=== PATIENT | male | born 1950 | race Caucasian/White ===

== ENCOUNTER 2017-08-13 08:44 | Day surgery (SDC) | payer MEDICARE, OTHER ==
[~2017-08-13] VITALS: Ht 167.6 cm; Wt 103.2 kg
[~2017-08-13 08:44] MED LIST: BENTYL10 MG; DULO30; Desyrel50 MG; GABA600; HYDR1TAB94 PO; IBUP800; MEMA10; Niacin1000 MG; OMEPRAZOLE MAGN20 MG; SINUS RINSE ST1 EACH; TAMS.4ER; ZOLP10
== END 2017-08-13 10:45 | disposition home or self-care (01) ==
LOC: ORSCSDS 08:44
PROVIDERS: Internal Medicine Gastroenterology
PROC: 0DB68ZX Excision of Stomach, Via Natural or Artificial Opening Endoscopic, Diagnostic (ICD-10-PCS; principal; 2017-08-13 10:00)
PROC: 0DBN8ZX Excision of Sigmoid Colon, Via Natural or Artificial Opening Endoscopic, Diagnostic (ICD-10-PCS; principal; 2017-08-13 10:00)
PROC: 0DBL8ZX Excision of Transverse Colon, Via Natural or Artificial Opening Endoscopic, Diagnostic (ICD-10-PCS; principal; 2017-08-13 10:00)
PROC: 0DB98ZX Excision of Duodenum, Via Natural or Artificial Opening Endoscopic, Diagnostic (ICD-10-PCS; principal; 2017-08-13 10:00)
PROC: 0DBH8ZX Excision of Cecum, Via Natural or Artificial Opening Endoscopic, Diagnostic (ICD-10-PCS; principal; 2017-08-13 10:00)
DX: K21.9 Gastro-esophageal reflux disease without esophagitis (principal); K22.10 Ulcer of esophagus without bleeding; K57.10 Diverticulosis of small intestine without perforation or abscess without bleeding; D12.0 Benign neoplasm of cecum; K63.5 Polyp of colon; K57.30 Diverticulosis of large intestine without perforation or abscess without bleeding; K64.8 Other hemorrhoids; Z12.11 Encounter for screening for malignant neoplasm of colon; M79.7 Fibromyalgia; E78.5 Hyperlipidemia, unspecified; N40.0 Benign prostatic hyperplasia without lower urinary tract symptoms; Z79.899 Other long term (current) drug therapy
CPT/HCPCS: 88305; 88342; J7120

== ENCOUNTER 2021-03-29 17:03 | Inpatient (IN) | payer MEDICARE ==
[~2021-03-29] VITALS: Ht 167.6 cm; Wt 83.4 kg
[~2021-03-29 17:03] MED LIST changes: -BENTYL10 MG; -DULO30; -OMEPRAZOLE MAGN20 MG; -TAMS.4ER; -ZOLP10
[2021-03-29 17:39] LABS: BASOPHILS ABSOLUTE AUTO 0.06 K/mm3 (0.00-0.23); BASOPHILS PERCENT AUTO 0 % (0-2); EOSINOPHILS PERCENT AUTO 0 % (0-6); Hemoglobin 18.8 g/dL (13.5-17.5); IMMATURE GRAN ABSOLUTE AUTO 0.42 K/mm3 (0.00-0.10); IMMATURE GRAN PERCENT AUTO 2 % (0-1); LYMPHOCYTES ABSOLUTE AUTO 0.88 K/mm3 (0.84-5.20); LYMPHOCYTES PERCENT AUTO 3 % (21-46); MONOCYTES ABSOLUTE AUTO 1.37 K/mm3 (0.16-1.47); MONOCYTES PERCENT AUTO 5 % (4-13); Mean Corpuscular HGB 29.5 pg (26.0-34.0); Mean Corpuscular HGB Conc 34.2 g/dL (31.5-36.5); Mean Corpuscular Volume 86 fL (80-100); Mean Platelet Volume 10.9 fL (9.1-12.4); NEUTROPHILS ABSOLUTE AUTO 25.86 K/mm3 (1.96-9.15); NEUTROPHILS PERCENT AUTO 90 % (41-73); Platelet Count 297 K/mm3 (150-400); RDW Coefficient Variation 13.3 % (11.7-14.2); RDW Standard Deviation 41.7 fL (35.1-46.3); Red Blood Cell Count 6.38 M/mm3 (4.30-5.90); White Blood Cell Count 28.59 K/mm3 (4.00-11.30)
[2021-03-29 18:02] LABS: Alanine Aminotransfer (ALT/SGP 22 U/L (12-78); Albumin/Globulin Ratio 1.1 (0.8-1.8); Alk Phos 64 U/L (50-136); Anion Gap 16 mmol/L (6-16); Aspartate Aminotrans (AST/SGOT 16 U/L (12-37); Bilirubin, Total 0.5 mg/dL (0.1-1.0); Blood Urea Nitrogen 19 mg/dL (8-24); CO2, Blood 19 mmol/L (21-32); Calcium, Blood 10.1 mg/dL (8.5-10.1); Chloride, Blood 104 mmol/L (98-108); Globulin, Blood 3.6 g/dL (2.2-4.0); Glomerular Filtration Rate >60 (60-); Glucose, Blood 200 mg/dL (70-99); Potassium, Blood 3.2 mmol/L (3.5-5.5); Sodium, Blood 139 mmol/L (136-145); Total Protein, Blood 7.6 g/dL (6.4-8.2)
[2021-03-29] MEDS ORDERED: TAMS.4ER PO (19:27)
[2021-03-29] MEDS ORDERED: Norco 10-325 T1 EACH PO (19:28)
[2021-03-29] MEDS ORDERED: Dicyclomine HCl20 MG PO (19:28)
[2021-03-29] MEDS ORDERED: OMEPRAZOLE MAGN20 MG PO (19:29)
[2021-03-29] MEDS ORDERED: ZOLP10 PO (19:29)
[2021-03-29] MEDS ORDERED: DULO30 PO (19:29)
[2021-03-29] MEDS ORDERED: CYMBALTA30 M2 PO (19:30)
[2021-03-30 00:02] LABS: SARS-Cov-2 (COVID-19) PCR, MMC NEGATIVE (NEGATIVE)
[2021-03-30 00:32] LABS: BASOPHILS ABSOLUTE AUTO 0.04 K/mm3 (0.00-0.23); BASOPHILS PERCENT AUTO 0 % (0-2); EOSINOPHILS ABSOLUTE AUTO 0.01 K/mm3 (0.00-0.68); EOSINOPHILS PERCENT AUTO 0 % (0-6); Hematocrit 53.6 % (37.0-53.0); Hemoglobin 17.1 g/dL (13.5-17.5); IMMATURE GRAN ABSOLUTE AUTO 0.23 K/mm3 (0.00-0.10); IMMATURE GRAN PERCENT AUTO 1 % (0-1); LYMPHOCYTES ABSOLUTE AUTO 1.24 K/mm3 (0.84-5.20); LYMPHOCYTES PERCENT AUTO 5 % (21-46); MONOCYTES PERCENT AUTO 6 % (4-13); Mean Corpuscular HGB 29.3 pg (26.0-34.0); Mean Corpuscular HGB Conc 31.9 g/dL (31.5-36.5); Mean Corpuscular Volume 92 fL (80-100); NEUTROPHILS PERCENT AUTO 88 % (41-73); Platelet Count 248 K/mm3 (150-400); RDW Coefficient Variation 13.8 % (11.7-14.2); RDW Standard Deviation 46.6 fL (35.1-46.3); Red Blood Cell Count 5.84 M/mm3 (4.30-5.90); White Blood Cell Count 23.32 K/mm3 (4.00-11.30)
[2021-03-30 00:51] LABS: Anion Gap 15 mmol/L (6-16); Blood Urea Nitrogen 17 mg/dL (8-24); Bun/Creatinine Ratio 19.2 (12.0-20.0); CO2, Blood 13 mmol/L (21-32); Chloride, Blood 117 mmol/L (98-108); Creatinine, Blood 0.89 mg/dL (0.60-1.20); Glomerular Filtration Rate >60 (60-); Glucose, Blood 159 mg/dL (70-99); Potassium, Blood 3.9 mmol/L (3.5-5.5); Sodium, Blood 145 mmol/L (136-145)
[2021-03-30 00:57] LABS: Calcium, Blood 6.8 mg/dL (8.5-10.1)
[2021-03-30 01:27] LABS: Source, Urine Catheter
[2021-03-30 01:30] LABS: Bilirubin, Urine Neg (Neg); Blood, Urine 2+ (Neg); Glucose Qualitative, Urine 1+ (Neg); Ketones, Urine 3+ (Neg); Leukocyte Esterase, Urine Neg (Neg); Nitrite, Urine Neg (Neg); Protein, Urine 2+ (Neg); Specific Gravity, Urine 1.015 (1.003-1.022); Urobilinogen, Urine NORM (Normal)
[2021-03-30 01:36] LABS: Appearance, Urine Clear (Clear); Color, Urine Yellow (P-Yellow)
[2021-03-30 01:37] LABS: Bacteria Few /hpf; Red Blood Cells, Urine 0-2 /hpf (0-2); Squamous Epithelial Cells Not Seen /hpf (Few); WBC Cast 0-2 /lpf (0)
[2021-03-30 01:51] LABS: PCO2 Arterial 30.1 mmHg (35-45); PO2 Arterial 137 mmHg (80-100); pH Blood Arterial 7.32 (7.35-7.45)
--- NOTE | 2021-03-30 02:01 | NUR ---
DR SIMMONS AT BEDSIDE. POC TO TAKE TO OR.
--- NOTE | 2021-03-30 02:37 | NUR ---
RAPID RESPONSE/CODE BLUE RAPID RESPONSE/CODE BLUE IMMEDIATELY UPON ADMISSION. PT ER ADMIT. PT ARRIVED TO THE UNIT 2350, PT WALKED FROM [facility] TO THE BED. PT WAS A/OX4, I INTRODUCED MYSELF TO PT, AND HE ACKNOWLEDGED ME AND SETTLED INTO THE BED. HE APPEARED WITHOUT ANY DISTRESS AND DID NOT HAVE ANY COMPLAINTS. AT 2353 [facility], BIOINFORMATICS ASSISTANT WAS IN THE ROOM ASSISTING PT. PT REPORTED THAT HE NEEDED TO USE THE BATHROOM HE WALKED TO THE BATHROOM WITH SBA AND WHEN HE RETURNED BIOINFORMATICS ASSISTANT REPORTED THAT HE JUST PASSED OUT. BIOINFORMATICS ASSISTANT CAUGHT PAITENT AND SLID HIM DOWN TO THE SIDE OF THE BED. HELPER RN MYRNA CRUMP WAS ALSO AT THE BEDSIDE WHEN THIS OCCURED. THIS RN AND ORIENT MARTITA PORTER, WERE NOT IN THE ROOM AT THE TIME. THEY IMMEDIATELY CALLED FOR ASSISTANCE AND I IMMEDIATELY CAME IN THE ROOM TO FIND PT LAYING AT THE END OF THE BED WITH HIS FEET HANGING OFF THE BED TOUCHING THE FLOOR. PT WAS PALE AND WAS MOSTLY NON RESPONSIVE. PT WAS SLIGHTLY MOVING HIS ARMS, AND HIS EYES BUT DID NOT VERBALLY RESPOND. RAPID RESPONSE WAS CALLED AT 2358. MOBILE EQUIPMENT MECHANIC CAME INTO ROOM TO IMMEDIATELY ASSESS PT, WHEN MOBILE EQUIPMENT MECHANIC ARRIVED PT HAD STOPPED BREATHING AND CODE WAS CALLED AT 0000. PT DID NOT LOSE PULSE, BUT WAS NOT BREATHING. RT BEGAN BAGGING PT AT THAT TIME, PT WAS IN AND OUT OF CONCIOUSNESS, KICKING AND MOVING HIS EXTREMITIES. DR. PEÑA ARRIVED AT BEDSIDE TO ASSESS PT AND DETERMINED THAT PT NEEDED TO BE INTUBATED. DR. PEÑA INTUBATED PT. VITALS CYCLED ON MACHINE. CURTIS ROSAS RN WAS ACTING RECORDER OF EVENTS. LABS WERE OBTAINED. PT IMMEDIATELY TRANSFERRED TO ICU RM 2 AT [address].
--- NOTE | 2021-03-30 02:59 | NUR ---
PT TO OR
--- NOTE | 2021-03-30 03:38 | NUR ---
03/30/21 0338 Chacho Boogie PT ENTERED OR WITH ROSAS CATHETER AND ON SCHEDULED ANTIBIOTICS
[2021-03-30 05:15] LABS: BASOPHILS ABSOLUTE AUTO 0.05 K/mm3 (0.00-0.23); BASOPHILS PERCENT AUTO 0 % (0-2); EOSINOPHILS PERCENT AUTO 0 % (0-6); Hematocrit 47.4 % (37.0-53.0); Hemoglobin 16.4 g/dL (13.5-17.5); IMMATURE GRAN ABSOLUTE AUTO 0.21 K/mm3 (0.00-0.10); IMMATURE GRAN PERCENT AUTO 1 % (0-1); LYMPHOCYTES ABSOLUTE AUTO 1.02 K/mm3 (0.84-5.20); LYMPHOCYTES PERCENT AUTO 5 % (21-46); MONOCYTES ABSOLUTE AUTO 0.87 K/mm3 (0.16-1.47); MONOCYTES PERCENT AUTO 4 % (4-13); Mean Corpuscular HGB 29.7 pg (26.0-34.0); Mean Corpuscular HGB Conc 34.6 g/dL (31.5-36.5); Mean Platelet Volume 11.5 fL (9.1-12.4); NEUTROPHILS ABSOLUTE AUTO 20.43 K/mm3 (1.96-9.15); NEUTROPHILS PERCENT AUTO 91 % (41-73); Platelet Count 249 K/mm3 (150-400); RDW Coefficient Variation 13.7 % (11.7-14.2); RDW Standard Deviation 43.4 fL (35.1-46.3); Red Blood Cell Count 5.52 M/mm3 (4.30-5.90); White Blood Cell Count 22.58 K/mm3 (4.00-11.30)
--- NOTE | 2021-03-30 05:17 | NUR ---
PT RETURNS FROM OR AT 0448. HE REMAINS INTUBATED AND ON SAME VENT SETTINGS. APPROX 20 IN OF BOWEL WERE REMOVED PER DR SIMMONS, WHO IS GOING TO CALL TO UPDATE THE DAUGHTER. PROPOFOL IS RESTARTED FOR SEDATION. DEMLY DRESSING IN PLACE ON ABD.
[2021-03-30 05:41] LABS: Mean Corpuscular Volume 86 fL (80-100)
[2021-03-30 05:42] LABS: Anion Gap 8 mmol/L (6-16); Blood Urea Nitrogen 17 mg/dL (8-24); Bun/Creatinine Ratio 19.3 (12.0-20.0); CO2, Blood 21 mmol/L (21-32); Calcium, Blood 7.5 mg/dL (8.5-10.1); Chloride, Blood 111 mmol/L (98-108); Creatinine, Blood 0.88 mg/dL (0.60-1.20); Glomerular Filtration Rate >60 (60-); Glucose, Blood 133 mg/dL (70-99); Sodium, Blood 140 mmol/L (136-145)
--- NOTE | 2021-03-30 06:45 | NUR ---
SHIFT SUMMARY PT REMAINS STABLE OFF PRESSORS SINCE RETURNING TO ICU.VENT SETTINGS UNCHANGED EXCEPT FIO2 DECREASED TO 40%. DELMY DRESSING CDI. PT HAD 2-3 FEET OF SMALL BOWELL REMOVED PER DR SIMMONS. HE IS COMFORTABLY SEDATED ON PROPOFOL AT 30MCG/KG/MIN. WILL CONTINUE TO MONITOR AND REPORT TO ONCOMING SHIFT.
--- NOTE | 2021-03-30 08:00 | NUR ---
ASSUMED CARE PT SEDATED AND INTUBATED AT THIS TIME. RESPONDS TO VERBAL STIMULI. PT. HAS NG TUBE IN PLACE TO LIS, CLEAR GREEN FLUID NOTED IN OG TUBE. PT. HAS MIDLINE DELMY DRESSING IN PLACE WITH SMALL AMT OF DRAINAGE TO DRESSING APPROX SIZE OF A QUARTER. PT. ABD SOFT, BT ABSENT AT THIS TIME. ROSAS IN PLACE DRAINING TO GRAVITY. VSS AT THIS TIME. HR IN LOW 100S. PT. CURRENTLY ON PROPOFOL FOR SEDATION. NADN. BILAT WRIST RESTRAINTS IN PLACE FOR SAFETY.
[2021-03-30 08:26] LABS: Anion Gap 7 mmol/L (6-16); Blood Urea Nitrogen 17 mg/dL (8-24); Bun/Creatinine Ratio 17.2 (12.0-20.0); CO2, Blood 22 mmol/L (21-32); Calcium, Blood 7.9 mg/dL (8.5-10.1); Chloride, Blood 110 mmol/L (98-108); Creatinine, Blood 0.99 mg/dL (0.60-1.20); Glomerular Filtration Rate >60 (60-); Glucose, Blood 127 mg/dL (70-99); Potassium, Blood 4.8 mmol/L (3.5-5.5); Sodium, Blood 139 mmol/L (136-145)
--- NOTE | 2021-03-30 09:23 | NUR ---
PROP PLACED ON SB FOR WEAN SPONT PS 8, 30%. VSS AT THIS TIME.
--- NOTE | 2021-03-30 09:30 | NUR ---
EXTUBATION PT. EXTUBATED AT THIS TIME. BILAT WRIST RESTRAINTS REMOVED AT TIME OF EXTUBATION. PT. IMMEDIATELY BEGAN PULLING AT BEDRAIL STATING "I HAVE TO GET UP AND GO TO THE BATHROOM", PT REORIENTED AND REMINDED OF ROSAS CATHETER. PT. PULLING AT LINES/ CORDS AND THROWING LEGS OVER THE EDGE OF THE BED ATTEMPTING TO GET OOB. PT. REMINDED FREQUENTLY OF SAFETY AND IMPORTANCE OF STAYING IN BED. PT REORIENTED TO ABD SURGERY. PT. INSISTANT OF GETTING OUT OF BED, STATING "I CAN NOT PEE LIKE THIS GET ME UP NOW". TIRE VULCANIZER IN TO ASSIST THIS RN TO HELP GET PT LEGS BACK INTO BED. PT. REQUESTING ROSAS BE REMOVED, PULLING AT ROSAS. REPORTS HE CAN NOT VOID. URINE IN TUBING. ROSAS DCD AT THIS TIME. PT. BLADDER SCANNED DUE TO CONTINUED FEELING OF NEEDING TO VOID WITH INABILITY TO DO SO. NO RESIDUAL URINE IN BLADDER PER BLADDER SCAN. PT. PULLING AT BED RAIL INSISTING ON GETTING OOB. PHYSICAL THERAPIST IN TO ROOM TO ASSIST TO DANGLE PT. PT. SAFELY ASSISTED TO BEDSIDE TO DANGLE AND STAND BRIEFLY TO VOID. ABLE TO VOID A SMALL AMOUNT INTO URINAL. PT. HR INCREASED TO 150S WHILE STANDING AND PT BECAME DIAPHORETIC. ASSISTED PT BACK TO BED AT THIS TIME. NG TUBE REMAINS IN PLACE WITH 2LNC. PT HR DOWN TO 120S ONCE BACK IN BED. PT. CONTINUES TO ASK TO GET OOB TO PEE AND NEEDS FREQUENT REDIRECTION. BED ALARM ON FOR SAFETY AND BED IN LOW POSITION. CALL LIGHT IN REACH.
--- NOTE | 2021-03-30 10:56 | NUR ---
PT UPDATED PT. REMAINS SITTING UP IN BED WITH URINAL. CALL LIGHT IN REACH. PT ASSSISTED TO USE HIS CELL PHONE TO CALL . ORAL CARE PROVIDED.
--- NOTE | 2021-03-30 12:24 | NUR ---
REPORT TO SURGICAL FLOOR RN. PT TO BE TRANSFERRED TO ROOM 209. PT FAMILY UPDATED.
--- NOTE | 2021-03-30 12:48 | NUR ---
PT TRANSFERRED TO SURGICAL FLOOR. VSS UPON TRANSFER.
--- NOTE | 2021-03-30 18:34 | NUR ---
SHIFT SUMMARY PT TRANSFERRED FROM ICU AFTER BEING EXTUBATED. PT HAS A SBO AND HAS NG TO LOW SUCTION. ANXIETY PRESENT AFTER BEING EXTUBATED THAT HAS SUBSIDED SLIGHTLY. PT HAS CHRONIC FIBROMYALGIA PAIN AND A HX OF PROSTATE CANCER. PT HAS FREQUENCY AND URGENCY. PT TACHYCARDIC AND HR INCREASES AND PT BECOMES DIAPHORETIC WITH AMBULATION. POD #1 FOR EX LAP. MIDLINE DELMY DRESSING PLACE. SMALL AMOUNT OF DRAINAGE NOTED. CURRENTLY RESTING IN BED WITH HIS CALL LIGHT IN REACH. WILL REPORT TO ONCOMING RN.
--- NOTE | 2021-03-30 21:15 | NUR ---
ON ASSESSMENT NOTED PTS R HAND SWOLLEN AND DUSKY.PALM IS DARKER THAN TOPSIDE AND REFILL DELAYED.PT REPORTS MILD PAIN AT R WRIST, AND DECREASED SENSATION TO R HAND COMPARED TO L. RADIAL PULSE PRESENT.PT ABLE TO WIGGLE FINGERS AND ODETTE FIST.WRIST BAND REMOVED, BUT IT WAS NOT TIGHT.IV R LEAKING DCD WITH CATH INTACT. HEART RATE REMAINS 120'S.DELMY DRESSING SATURATED WITH RED DRNG.I CALLED DR ALMONTE AND DISCUSSED MY ASSESSMENT. TO ROOM AND CHECKED PTS HAND.NOTED FEW SCABS TO TOP OF R HAND WHICH COULD BE PRIOR IV ATTEMPTS OR SITES.NO CHANGE OF ORDERS.
--- NOTE | 2021-03-31 00:55 | NUR ---
ABD DRESSING WITH ONLY SCANT BLEED AT THIS TIME. PT VOIDING JONATHAN URINE. PRESSURE DRESSING REMOVED TO R FA AT IV DC HAS LIGHT OOZING.HEART RATE CONTINUES 120'S.I SPOKE WITH DR SIMMONS AND ADVISED OF ABOVE INCLUDING DISCUSSED HAND. LABS AND IV BOLUS ORDERED.
[2021-03-31 02:05] LABS: BASOPHILS ABSOLUTE AUTO 0.03 K/mm3 (0.00-0.23); BASOPHILS PERCENT AUTO 0 % (0-2); EOSINOPHILS PERCENT AUTO 0 % (0-6); Hematocrit 36.4 % (37.0-53.0); Hemoglobin 12.5 g/dL (13.5-17.5); IMMATURE GRAN ABSOLUTE AUTO 0.05 K/mm3 (0.00-0.10); IMMATURE GRAN PERCENT AUTO 0 % (0-1); LYMPHOCYTES ABSOLUTE AUTO 0.88 K/mm3 (0.84-5.20); LYMPHOCYTES PERCENT AUTO 6 % (21-46); MONOCYTES ABSOLUTE AUTO 1.37 K/mm3 (0.16-1.47); MONOCYTES PERCENT AUTO 9 % (4-13); Mean Corpuscular HGB 29.6 pg (26.0-34.0); Mean Corpuscular HGB Conc 34.3 g/dL (31.5-36.5); Mean Corpuscular Volume 86 fL (80-100); NEUTROPHILS ABSOLUTE AUTO 13.64 K/mm3 (1.96-9.15); NEUTROPHILS PERCENT AUTO 85 % (41-73); Platelet Count 169 K/mm3 (150-400); RDW Coefficient Variation 14.1 % (11.7-14.2); RDW Standard Deviation 44.8 fL (35.1-46.3); Red Blood Cell Count 4.22 M/mm3 (4.30-5.90); White Blood Cell Count 15.97 K/mm3 (4.00-11.30)
[2021-03-31 02:34] LABS: Alanine Aminotransfer (ALT/SGP 29 U/L (12-78); Albumin, Blood 2.1 g/dL (3.4-5.0); Albumin/Globulin Ratio 0.9 (0.8-1.8); Alk Phos 36 U/L (50-136); Anion Gap 5 mmol/L (6-16); Aspartate Aminotrans (AST/SGOT 43 U/L (12-37); Bilirubin, Total 0.4 mg/dL (0.1-1.0); Blood Urea Nitrogen 21 mg/dL (8-24); Bun/Creatinine Ratio 22.5 (12.0-20.0); CO2, Blood 27 mmol/L (21-32); Chloride, Blood 113 mmol/L (98-108); Creatinine, Blood 0.93 mg/dL (0.60-1.20); Globulin, Blood 2.3 g/dL (2.2-4.0); Glomerular Filtration Rate >60 (60-); Glucose, Blood 91 mg/dL (70-99); Potassium, Blood 3.9 mmol/L (3.5-5.5); Sodium, Blood 145 mmol/L (136-145)
[2021-03-31 02:36] LABS: Total Protein, Blood 4.4 g/dL (6.4-8.2)
--- NOTE | 2021-03-31 04:30 | NUR ---
PT RECEIVED BOLUS PER ORDERS AND HEART RATE IS TRENDING UP.138 AVERAGE.CONTINUES SINUS RHYTHMN.I CALLED DR JUAN AND ADVISED OF ABOVE.DOCTOR ORDERED IV LOPRESSOR X1 DOSE.
--- NOTE | 2021-03-31 05:15 | NUR ---
HEART RATE IS TRENDING DOWN TO 105.
--- NOTE | 2021-03-31 05:30 | NUR ---
PT CONT WITH MILD OOZING AT PRIOR IV SITE R FA WHEN DRESSING AND COBAN REMOVED.ABD DRESSING WITH APPROX 50 CENT SIZED AREA OF RED DRNG TO DELMY.PT RECENT VOID WATERMELON COLORED AND SLIGHT BLEEDING TO MEATUS.I CALLED DR JUAN FOR MY CONCERNS OF PT NOT HAVING BEEN ON THINNERS AND OOZING SITES AND BLEEDING WITH VOID.PT/INR ORDERED.
--- NOTE | 2021-03-31 06:56 | NUR ---
SUMMARY PT RESTING ON L SIDE.IV FLUIDS INFUSING. NO DISTRESS NOTED.PRIOR OOZING IV SITE WITH ONLY DRIED BLOOD AT THIS TIME.PT VOIDED YELLOW URINE HIS MOST RECENT VOID. LABS WERE DRAWN AND PENDING.
[2021-03-31 06:57] LABS: BASOPHILS ABSOLUTE AUTO 0.02 K/mm3 (0.00-0.23); BASOPHILS PERCENT AUTO 0 % (0-2); EOSINOPHILS PERCENT AUTO 0 % (0-6); Hemoglobin 12.4 g/dL (13.5-17.5); IMMATURE GRAN ABSOLUTE AUTO 0.06 K/mm3 (0.00-0.10); IMMATURE GRAN PERCENT AUTO 0 % (0-1); LYMPHOCYTES ABSOLUTE AUTO 0.96 K/mm3 (0.84-5.20); LYMPHOCYTES PERCENT AUTO 6 % (21-46); MONOCYTES ABSOLUTE AUTO 1.35 K/mm3 (0.16-1.47); MONOCYTES PERCENT AUTO 8 % (4-13); Mean Corpuscular HGB 29.4 pg (26.0-34.0); Mean Corpuscular HGB Conc 33.5 g/dL (31.5-36.5); Mean Corpuscular Volume 88 fL (80-100); Mean Platelet Volume 11.2 fL (9.1-12.4); NEUTROPHILS ABSOLUTE AUTO 13.79 K/mm3 (1.96-9.15); NEUTROPHILS PERCENT AUTO 85 % (41-73); Platelet Count 166 K/mm3 (150-400); RDW Coefficient Variation 14.2 % (11.7-14.2); RDW Standard Deviation 45.5 fL (35.1-46.3); Red Blood Cell Count 4.22 M/mm3 (4.30-5.90); White Blood Cell Count 16.18 K/mm3 (4.00-11.30)
[2021-03-31 07:15] LABS: International Normalized Ratio 1.15; Prothrombin Time Results 12.3 Sec (9.7-11.5)
[2021-03-31 07:17] LABS: Albumin, Blood 2.2 g/dL (3.4-5.0); Anion Gap 6 mmol/L (6-16); Blood Urea Nitrogen 19 mg/dL (8-24); Bun/Creatinine Ratio 20.6 (12.0-20.0); CO2, Blood 28 mmol/L (21-32); Chloride, Blood 111 mmol/L (98-108); Creatinine, Blood 0.92 mg/dL (0.60-1.20); Glomerular Filtration Rate >60 (60-); Glucose, Blood 91 mg/dL (70-99); Phosphorus, Blood 2.3 mg/dL (2.5-4.9); Potassium, Blood 3.8 mmol/L (3.5-5.5); Sodium, Blood 145 mmol/L (136-145)
--- NOTE | 2021-03-31 16:49 | NUR ---
awating [facility] for [address] ATTEMPTS BY TWO PHLEBOTOMISTS UNSUCCESSFUL. RN UNABLE TO DRAW FROM dynaTrace software. CALL OUT TO DR CHOWDHURY.
--- NOTE | 2021-03-31 18:05 | NUR ---
SUMMARY NO ACUTE CHANGES T/O SHIFT. PT PAINFUL, MEDICATED PER ORDERS FOR PAIN. NG PUTTING OUT GREEN LIQUID. PT DENIES PASSING FLATUS. ABLE TO TURN SELF INDEPENDENTLY IN BED. IV FLUIDS INFUSING PER ORDERS. CALL LIGHT IN REACH.
--- NOTE | 2021-03-31 19:05 | NUR ---
report given to oncoming shift.
[2021-04-01 05:09] LABS: BASOPHILS ABSOLUTE AUTO 0.03 K/mm3 (0.00-0.23); BASOPHILS PERCENT AUTO 0 % (0-2); EOSINOPHILS ABSOLUTE AUTO 0.02 K/mm3 (0.00-0.68); EOSINOPHILS PERCENT AUTO 0 % (0-6); Hematocrit 31.2 % (37.0-53.0); Hemoglobin 10.4 g/dL (13.5-17.5); IMMATURE GRAN ABSOLUTE AUTO 0.07 K/mm3 (0.00-0.10); IMMATURE GRAN PERCENT AUTO 1 % (0-1); LYMPHOCYTES ABSOLUTE AUTO 0.76 K/mm3 (0.84-5.20); LYMPHOCYTES PERCENT AUTO 7 % (21-46); MONOCYTES ABSOLUTE AUTO 0.65 K/mm3 (0.16-1.47); MONOCYTES PERCENT AUTO 6 % (4-13); Mean Corpuscular HGB 29.6 pg (26.0-34.0); Mean Corpuscular HGB Conc 33.3 g/dL (31.5-36.5); Mean Corpuscular Volume 89 fL (80-100); NEUTROPHILS ABSOLUTE AUTO 10.19 K/mm3 (1.96-9.15); NEUTROPHILS PERCENT AUTO 87 % (41-73); Platelet Count 122 K/mm3 (150-400); RDW Coefficient Variation 14.1 % (11.7-14.2); RDW Standard Deviation 45.6 fL (35.1-46.3); Red Blood Cell Count 3.51 M/mm3 (4.30-5.90); White Blood Cell Count 11.72 K/mm3 (4.00-11.30)
[2021-04-01 05:26] LABS: Anion Gap 7 mmol/L (6-16); Blood Urea Nitrogen 15 mg/dL (8-24); Bun/Creatinine Ratio 19.3 (12.0-20.0); CO2, Blood 27 mmol/L (21-32); Chloride, Blood 108 mmol/L (98-108); Creatinine, Blood 0.78 mg/dL (0.60-1.20); Glomerular Filtration Rate >60 (60-); Glucose, Blood 66 mg/dL (70-99); Potassium, Blood 3.4 mmol/L (3.5-5.5); Sodium, Blood 142 mmol/L (136-145)
--- NOTE | 2021-04-01 06:46 | NUR ---
SHIFT SUMMARY POD2 SMALL BOWEL RESECTION, A/O X4, VSS, TOLERATING SIPS, NG IN PLACE TO LIS c 500 OUT, PAIN MANAGED PER EMAR, BT CONTINUE TO BE HYPOACTIVE, PG TO LUE AND ABLE TO DRAW. NO ACUTE EVENTS THIS SHIFT. CALL LIGHT IN REACH, WILL CTM AND REPORT TO DAY RN.
--- NOTE | 2021-04-01 18:45 | NUR ---
SHIFT SUMMARY PT POD #2 FOR SMALL BOWEL RESECTION. NG TUBE DC'D TODAY WNL AND PT TOLERATED REMOVAL WELL. TOLERATING CLEAR LIQUIDS. MEDICATED FOR PAIN DUE TO CHRONIC FIBROMYALGIA PAIN. DELMY DRESSING AT MIDLINE SOILED BUT PT REFUSED DRESSING CHANGE. PT VOIDING SMALL AMOUNTS IN THE URINAL DUE TO BPH. REFUSES TO BE CATHETERIZED. DISCUSSED THIS WITH THE PHYSICIAN. PT HAD A LARGE BM THIS SHIFT. VSS. WILL REPORT TO ONCOMING RN.
--- NOTE | 2021-04-02 06:55 | NUR ---
A/OX3. ABLE TO MAKE HIS NEEDS KNOWN. S/P BOWEL RESECTION. HAD 2 BOUTS OF DIARRHEA. INCONTINENT OF STOOL. FULL BED LINEN AND GOWN CHANGE DONE. ABD TENDER. BT POS X4, HYPOACTIVE. NO N/V. NGT WAS D/C'D YEST. TOLERATING CLD WELL. ABD MIDLINE DELMY DRSG IN PLACE. MOD AMT OF OLD BLOODY DRNG NOTED TO DELMY DRSG. PT REFUSED TO HAVE DELMY DRSG CHANGED. NEW POWEGLIDE IV STARTED DURING NOC. IVF: LR AT 75ML/HR AND IV ABX. RT HAND EDEMATOUS AND MARCUS, PER REPORT MD AWARE.
--- NOTE | 2021-04-02 12:00 | NUR ---
Rounded with Dr. Lyon, changed to full liquid diet, will plan to transition to PO pain medications.
--- NOTE | 2021-04-02 18:16 | NUR ---
shift summary Alex is alert and oriented. Frequent trips to bathroom for small amounts of liquid BM. Voids small amounts with stools. Small amout of blood from meatus this afternoon. Pt reports he had a maldonado during this hospital admission. Will continue to monitor. Tolerating a full liquid diet. Changed to PO pain medications. DELMY dressing to midline draining without difficulty. VSS. Will continue to monitor and report to incoming night time babysitter RN.
--- NOTE | 2021-04-03 04:34 | NUR ---
A/OX3. ABLE TO MAKE HIS NEEDS KNOWN. NO ACUTE CHANGES/EVENTS DURING THE NIGHT. DENIED ANY N/V. HAVING LOOSE STOOLS. ABD SOFT. BT'S POS. TOLERATING FLD & PO NORCO. MIDLINE DELMY DRSG INTACT W/OLD BLOODY DRNG. LUE POWERGLIDE FOR IVF/IV ABX. RT HAND EDEMATOUS.
[2021-04-03 09:03] LABS: BASOPHILS ABSOLUTE AUTO 0.03 K/mm3 (0.00-0.23); BASOPHILS PERCENT AUTO 0 % (0-2); EOSINOPHILS ABSOLUTE AUTO 0.12 K/mm3 (0.00-0.68); EOSINOPHILS PERCENT AUTO 2 % (0-6); Hematocrit 34.7 % (37.0-53.0); Hemoglobin 11.7 g/dL (13.5-17.5); IMMATURE GRAN ABSOLUTE AUTO 0.07 K/mm3 (0.00-0.10); IMMATURE GRAN PERCENT AUTO 1 % (0-1); LYMPHOCYTES ABSOLUTE AUTO 0.46 K/mm3 (0.84-5.20); LYMPHOCYTES PERCENT AUTO 6 % (21-46); MONOCYTES ABSOLUTE AUTO 0.66 K/mm3 (0.16-1.47); MONOCYTES PERCENT AUTO 8 % (4-13); Mean Corpuscular HGB 28.9 pg (26.0-34.0); Mean Corpuscular HGB Conc 33.7 g/dL (31.5-36.5); Mean Corpuscular Volume 86 fL (80-100); Mean Platelet Volume 10.6 fL (9.1-12.4); NEUTROPHILS ABSOLUTE AUTO 6.79 K/mm3 (1.96-9.15); NEUTROPHILS PERCENT AUTO 83 % (41-73); Platelet Count 183 K/mm3 (150-400); RDW Coefficient Variation 13.6 % (11.7-14.2); RDW Standard Deviation 42.9 fL (35.1-46.3); Red Blood Cell Count 4.05 M/mm3 (4.30-5.90); White Blood Cell Count 8.13 K/mm3 (4.00-11.30)
[2021-04-03 09:15] LABS: Albumin, Blood 2.7 g/dL (3.4-5.0); Anion Gap 8 mmol/L (6-16); Blood Urea Nitrogen 7 mg/dL (8-24); CO2, Blood 27 mmol/L (21-32); Calcium, Blood 9.1 mg/dL (8.5-10.1); Chloride, Blood 108 mmol/L (98-108); Creatinine, Blood 0.77 mg/dL (0.60-1.20); Glomerular Filtration Rate >60 (60-); Glucose, Blood 114 mg/dL (70-99); Phosphorus, Blood 3.1 mg/dL (2.5-4.9); Potassium, Blood 2.9 mmol/L (3.5-5.5); Sodium, Blood 143 mmol/L (136-145)
--- NOTE | 2021-04-03 17:46 | NUR ---
SHIFT SUMMARY PT A&OX4, VSS, POD 4 EXP LAP, MIDLINE DELMY REMOVED TODAY, MICH W/MEDIPORE DRESSING CDI. PAIN MANAGED WITH 5 MG NORCO. TREMAINE PO REG DIET. VOIDING WELL. MULTIPLE SOFT/BROWN BM'S. AMBULATES INDEPENDENTLY TO P, AND IN HALLWAY. SANG POWERGLIDE FLUSHES AND DRAWS WELL. WILL REPORT TO ONCOMING NOC RN.
--- NOTE | 2021-04-04 06:42 | NUR ---
A/O X3. ABLE TO MAKE HIS NEEDS KNOWN. POD #3 EXP LAP W/BOWEL SECTION. MIDLINE INCISION COVERED WITH MEDIPORE DRSG. DRSG CDI. NO N/V. HAVING SMALL/FREQ SOFTLY FORMED BM'S. VOIDS W/O DIFF. LUE FLUSHES AND INFUSES WELL BUT NO BLOOD RETURN. TOLERATING REG DIET WELL. RT HAND EDEMA IMPROVING. PAIN WELL MANAGED WITH PRN NORCO. AMB HALLS X1 DURING NOC.
[2021-04-04 06:48] LABS: Albumin, Blood 2.4 g/dL (3.4-5.0); Anion Gap 6 mmol/L (6-16); Blood Urea Nitrogen 5 mg/dL (8-24); Bun/Creatinine Ratio 6.5 (12.0-20.0); CO2, Blood 25 mmol/L (21-32); Calcium, Blood 8.1 mg/dL (8.5-10.1); Chloride, Blood 112 mmol/L (98-108); Creatinine, Blood 0.77 mg/dL (0.60-1.20); Glomerular Filtration Rate >60 (60-); Glucose, Blood 96 mg/dL (70-99); Magnesium, Blood 1.7 mg/dL (1.6-2.4); Phosphorus, Blood 3.4 mg/dL (2.5-4.9); Potassium, Blood 3.5 mmol/L (3.5-5.5); Sodium, Blood 143 mmol/L (136-145)
[2021-04-04 08:02] LABS: BASOPHILS ABSOLUTE AUTO 0.03 K/mm3 (0.00-0.23); BASOPHILS PERCENT AUTO 0 % (0-2); EOSINOPHILS ABSOLUTE AUTO 0.18 K/mm3 (0.00-0.68); EOSINOPHILS PERCENT AUTO 3 % (0-6); Hemoglobin 11.5 g/dL (13.5-17.5); IMMATURE GRAN ABSOLUTE AUTO 0.09 K/mm3 (0.00-0.10); IMMATURE GRAN PERCENT AUTO 1 % (0-1); LYMPHOCYTES PERCENT AUTO 6 % (21-46); MONOCYTES ABSOLUTE AUTO 0.79 K/mm3 (0.16-1.47); MONOCYTES PERCENT AUTO 12 % (4-13); Mean Corpuscular HGB 28.9 pg (26.0-34.0); Mean Corpuscular HGB Conc 33.8 g/dL (31.5-36.5); Mean Corpuscular Volume 85 fL (80-100); Mean Platelet Volume 10.6 fL (9.1-12.4); NEUTROPHILS PERCENT AUTO 78 % (41-73); Platelet Count 186 K/mm3 (150-400); RDW Standard Deviation 43.4 fL (35.1-46.3); Red Blood Cell Count 3.98 M/mm3 (4.30-5.90); White Blood Cell Count 6.79 K/mm3 (4.00-11.30)
[2021-04-04] MEDS ORDERED: LOPE2C PO (14:52)
--- NOTE | 2021-04-04 16:15 | NUR ---
MEDICATION CLARIFICATION PER DR. SIMMONS, PT IS TO CONTINUE DULOXETINE A HOME MED PREVIOUSLY ORDERED. WILL INFORM PT.
--- NOTE | 2021-04-04 17:55 | NUR ---
DISCHARGE PT DISCHARGED AT APPROX. 1740. DISCHARGE PACKET DISCUSSED WITH AND SENT WITH PT. ALL PT'S BELONGINGS SENT WITH WITH PT. IV REMOVED. PT A&O X4 AND VERY PLEASANT.
== END 2021-04-04 17:55 | disposition home or self-care (01) | DRG 853 ==
LOC: ER 17:03 → ICUE 22:13 → MEDS 22:13 → ICUE 03-30 00:24 → SURS 03-30 13:07
PROVIDERS: Internal Medicine; Student in an Organized Health Care Education/Training Program; ADMIT Surgery
PROC: 5A12012 Performance of Cardiac Output, Single, Manual (ICD-10-PCS; principal; 2021-03-29)
PROC: 0DNU0ZZ Release Omentum, Open Approach (ICD-10-PCS; 2021-03-30)
PROC: 5A1955Z Respiratory Ventilation, Greater than 96 Consecutive Hours (ICD-10-PCS; 2021-03-30)
PROC: 3E033XZ Introduction of Vasopressor into Peripheral Vein, Percutaneous Approach (ICD-10-PCS; 2021-03-30)
PROC: 0DB80ZZ Excision of Small Intestine, Open Approach (ICD-10-PCS; 2021-03-30 02:30)
DX: A41.9 Sepsis, unspecified organism (principal); R65.21 Severe sepsis with septic shock; J96.01 Acute respiratory failure with hypoxia; J69.0 Pneumonitis due to inhalation of food and vomit; K55.1 Chronic vascular disorders of intestine; E87.2 Acidosis; K56.52 Intestinal adhesions [bands] with complete obstruction; Z20.822 Contact with and (suspected) exposure to COVID-19; E87.6 Hypokalemia; E83.42 Hypomagnesemia; K21.9 Gastro-esophageal reflux disease without esophagitis; Z88.8 Allergy status to other drugs, medicaments and biological substances; Z90.49 Acquired absence of other specified parts of digestive tract; Z98.890 Other specified postprocedural states; Z79.899 Other long term (current) drug therapy
CPT/HCPCS: 31500; 36415; 36600; 51702; 71260; 74177; 80048; 80053; 80069; 81001; 82803; 83605; 83690; 83735; 84132; 85025; 85610; 87040; 88307; 93005; 93010; 94002; 94003; 96365-59; 96366; 96375; 96376; 97110; 97116; 97162; 97165; 97530; 97535; 99285-25; A9270; C1751; J0780; J1100; J1170; J1650; J2001; J2270; J2370; J2405; J2543; J2704; J3010; J3370; J3475; J3480; J7030; J7040; J7050; J7060; J7120; Q9967; U0004

== ENCOUNTER 2021-04-09 14:54 | Inpatient (IN) | payer MEDICARE, OTHER ==
[~2021-04-09] VITALS: Ht 167.6 cm; Wt 72.5 kg
[~2021-04-09 14:54] MED LIST changes: +CYMBALTA30 M2 PO; +DULO30 PO; +Dicyclomine HCl20 MG PO; +LOPE2C PO; +Norco 10-325 T1 EACH PO; +OMEPRAZOLE MAGN20 MG PO; +TAMS.4ER PO; +ZOLP10 PO
[2021-04-09 16:08] LABS: BASOPHILS ABSOLUTE AUTO 0.01 K/mm3 (0.00-0.23); BASOPHILS PERCENT AUTO 0 % (0-2); EOSINOPHILS ABSOLUTE AUTO 0.01 K/mm3 (0.00-0.68); EOSINOPHILS PERCENT AUTO 0 % (0-6); Hematocrit 36.7 % (37.0-53.0); Hemoglobin 12.3 g/dL (13.5-17.5); IMMATURE GRAN ABSOLUTE AUTO 0.06 K/mm3 (0.00-0.10); IMMATURE GRAN PERCENT AUTO 1 % (0-1); LYMPHOCYTES ABSOLUTE AUTO 0.42 K/mm3 (0.84-5.20); LYMPHOCYTES PERCENT AUTO 6 % (21-46); MONOCYTES ABSOLUTE AUTO 0.12 K/mm3 (0.16-1.47); MONOCYTES PERCENT AUTO 2 % (4-13); Mean Corpuscular HGB Conc 33.5 g/dL (31.5-36.5); Mean Corpuscular Volume 87 fL (80-100); Mean Platelet Volume 11.4 fL (9.1-12.4); NEUTROPHILS ABSOLUTE AUTO 5.99 K/mm3 (1.96-9.15); NEUTROPHILS PERCENT AUTO 91 % (41-73); Platelet Count 189 K/mm3 (150-400); RDW Coefficient Variation 14.2 % (11.7-14.2); RDW Standard Deviation 44.8 fL (35.1-46.3); Red Blood Cell Count 4.24 M/mm3 (4.30-5.90); White Blood Cell Count 6.61 K/mm3 (4.00-11.30)
[2021-04-09] MEDS ORDERED: Dexamethasone4 MG PO (16:25)
[2021-04-09 16:40] LABS: International Normalized Ratio 0.93; Prothrombin Time Results 10.1 Sec (9.7-11.5)
[2021-04-09] MEDS ORDERED: Bentyl10 MG PO (18:01)
[2021-04-09] MEDS ORDERED: Norco 5-325 MG PO (18:02)
[2021-04-09] MEDS ORDERED: OMEP20ER PO (18:04)
[2021-04-09] MEDS ORDERED: FLOMAX0.4 MG PO (18:05)
[2021-04-09] MEDS ORDERED: AMBIEN10 MG PO (18:06)
[2021-04-10 05:43] LABS: Hematocrit 34.4 % (37.0-53.0); Hemoglobin 11.3 g/dL (13.5-17.5); Mean Corpuscular HGB 28.6 pg (26.0-34.0); Mean Corpuscular HGB Conc 32.8 g/dL (31.5-36.5); Mean Corpuscular Volume 87 fL (80-100); Mean Platelet Volume 10.7 fL (9.1-12.4); Platelet Count 183 K/mm3 (150-400); RDW Standard Deviation 44.5 fL (35.1-46.3); Red Blood Cell Count 3.95 M/mm3 (4.30-5.90)
[2021-04-10 06:10] LABS: Alanine Aminotransfer (ALT/SGP 34 U/L (12-78); Albumin, Blood 2.4 g/dL (3.4-5.0); Albumin/Globulin Ratio 0.6 (0.8-1.8); Alk Phos 58 U/L (50-136); Anion Gap 5 mmol/L (6-16); Aspartate Aminotrans (AST/SGOT 46 U/L (12-37); Bilirubin, Total 0.3 mg/dL (0.1-1.0); Blood Urea Nitrogen 15 mg/dL (8-24); Bun/Creatinine Ratio 20.6 (12.0-20.0); CO2, Blood 27 mmol/L (21-32); Calcium, Blood 8.8 mg/dL (8.5-10.1); Chloride, Blood 106 mmol/L (98-108); Creatinine, Blood 0.73 mg/dL (0.60-1.20); Globulin, Blood 3.9 g/dL (2.2-4.0); Glomerular Filtration Rate >60 (60-); Glucose, Blood 110 mg/dL (70-99); Potassium, Blood 4.1 mmol/L (3.5-5.5); Sodium, Blood 138 mmol/L (136-145); Total Protein, Blood 6.3 g/dL (6.4-8.2)
--- NOTE | 2021-04-10 07:27 | NUR ---
SHIFT SUMMARY PATIENT ALERT AND ORIENTED. MEDICATED PER EMAR FOR PAIN. NO ACUTE ISSUES NOTED OVERNIGHT. CALL LIGHT WITHIN REACH. REPORT GIVEN TO ONCOMING RN.
--- NOTE | 2021-04-10 17:08 | NUR ---
SHIFT SUMMARY PT IS A&O, PLEASANT AND CO-OP WITH CARE. UP WITH SBA TO CHAIR AT BS FOR MEALS. PT WITH RECENT SBO AND BOWEL RESECT; MICH INTACT, SITE WNL'S. PT REPORTED THAT HE HAD AN APPOINTMENT WITH DR CROW FOR TODAY AT [facility], TO REMOVE MICH. DR HANDY CALLED TO REPORT ON PT AND TO MAKE SURE SOMEONE FOLLOWED UP WITH PT TODAY. DR CROW IN TO SEE PT AT 12:30, REMOVING MICH. SX SITE TO REMAIN OPEN TO AIR. DRSG MAY BE PLACED FOR COMFORT ONLY IF PT REQUESTS IT. MEDS GIVEN WHOLE IN APPLESAUCE, PER PT REQUEST. JUST RECENTLY MEDICATED FOR C/O PAIN. REPORTING IT EFFECTIVE. LUNGS T/O COARSE IN THE BASES. REMAINS ON 2L NC. SR ON TELE, PER MX TECH. DENIED FURTHER NEEDS. CALL LT IN REACH. ABLE TO MAKE NEEDS KNOWN.
--- NOTE | 2021-04-11 05:06 | NUR ---
Received patient in bed alert, awake, and oriented. Patient remains short of breath with movements. Vital signs stable. O2 2L via nasal cannula in place. Lungs with crackles left lower base. Patient still reports mild chest congestion with pain triggered by cough. Occasional non-productive cough noted. Abdominal incision with redness but no drainage. Abdomen non-tender with bowel sounds present all quadrants. Encourage use of IS and medicated for comfort. No acute distress noted. Safety measures maintained. Will continue with plan of care.
[2021-04-11 05:15] LABS: BASOPHILS ABSOLUTE AUTO 0.02 K/mm3 (0.00-0.23); BASOPHILS PERCENT AUTO 0 % (0-2); EOSINOPHILS PERCENT AUTO 0 % (0-6); Hematocrit 34.9 % (37.0-53.0); Hemoglobin 11.4 g/dL (13.5-17.5); IMMATURE GRAN ABSOLUTE AUTO 0.09 K/mm3 (0.00-0.10); IMMATURE GRAN PERCENT AUTO 1 % (0-1); LYMPHOCYTES ABSOLUTE AUTO 0.55 K/mm3 (0.84-5.20); LYMPHOCYTES PERCENT AUTO 5 % (21-46); MONOCYTES ABSOLUTE AUTO 0.52 K/mm3 (0.16-1.47); MONOCYTES PERCENT AUTO 5 % (4-13); Mean Corpuscular HGB 28.6 pg (26.0-34.0); Mean Corpuscular HGB Conc 32.7 g/dL (31.5-36.5); Mean Corpuscular Volume 88 fL (80-100); Mean Platelet Volume 11.1 fL (9.1-12.4); NEUTROPHILS ABSOLUTE AUTO 9.21 K/mm3 (1.96-9.15); NEUTROPHILS PERCENT AUTO 89 % (41-73); Platelet Count 234 K/mm3 (150-400); RDW Coefficient Variation 14.2 % (11.7-14.2); Red Blood Cell Count 3.99 M/mm3 (4.30-5.90); White Blood Cell Count 10.39 K/mm3 (4.00-11.30)
[2021-04-11 05:46] LABS: Alanine Aminotransfer (ALT/SGP 32 U/L (12-78); Albumin, Blood 2.4 g/dL (3.4-5.0); Albumin/Globulin Ratio 0.6 (0.8-1.8); Alk Phos 55 U/L (50-136); Anion Gap 8 mmol/L (6-16); Aspartate Aminotrans (AST/SGOT 47 U/L (12-37); Bilirubin, Total 0.2 mg/dL (0.1-1.0); Blood Urea Nitrogen 19 mg/dL (8-24); CO2, Blood 26 mmol/L (21-32); Calcium, Blood 9.2 mg/dL (8.5-10.1); Chloride, Blood 108 mmol/L (98-108); Creatinine, Blood 0.68 mg/dL (0.60-1.20); Globulin, Blood 3.9 g/dL (2.2-4.0); Glomerular Filtration Rate >60 (60-); Glucose, Blood 107 mg/dL (70-99); Potassium, Blood 3.9 mmol/L (3.5-5.5); Sodium, Blood 142 mmol/L (136-145); Total Protein, Blood 6.3 g/dL (6.4-8.2)
[2021-04-11 13:43] LABS: PCO2 Arterial 36 mmHg (35-45); PO2 Arterial 52 mmHg (80-100); pH Blood Arterial 7.48 (7.35-7.45)
--- NOTE | 2021-04-11 15:51 | NUR ---
PT C/O OF ARITHITIC PAIN AND REQUESTED VOLTAREN. DR GREENE NOTITIFED MED NOT STOCKED IN PHARMACY FORMULARY. PER DR GREENE " ITS OKAY FOR PATIENT TO HAVE DAUGHTER BRING VOLTAREN TO HOSPITAL."
--- NOTE | 2021-04-11 16:18 | NUR ---
PATIENT A&O X4 UP WITH STANDBY ASSIST. PATIENT C/O OF SUBSTERNAL AND CHEST PAIN FROM COUGHING AND WAS MEDICATED. PATIENT WORKED WITH PT AND OYGEN SATURATION DROPPED TO LOW 70S HAD DIFFICULTY RECOVERING. OXYGEN INCREASED TO 4L NC. PATIENT REASSESSED AND WEANED T0 3LNC. PATIENT USED INCENTIVE SPIRONMETER AND LAID PRONED. PATIENT IN STABLE CONDITION.
[2021-04-12 05:54] LABS: BASOPHILS ABSOLUTE AUTO 0.02 K/mm3 (0.00-0.23); BASOPHILS PERCENT AUTO 0 % (0-2); EOSINOPHILS PERCENT AUTO 0 % (0-6); Hematocrit 37.1 % (37.0-53.0); Hemoglobin 12.4 g/dL (13.5-17.5); IMMATURE GRAN ABSOLUTE AUTO 0.27 K/mm3 (0.00-0.10); IMMATURE GRAN PERCENT AUTO 3 % (0-1); LYMPHOCYTES ABSOLUTE AUTO 0.48 K/mm3 (0.84-5.20); LYMPHOCYTES PERCENT AUTO 6 % (21-46); MONOCYTES ABSOLUTE AUTO 0.64 K/mm3 (0.16-1.47); MONOCYTES PERCENT AUTO 8 % (4-13); Mean Corpuscular HGB 28.6 pg (26.0-34.0); Mean Corpuscular HGB Conc 33.4 g/dL (31.5-36.5); Mean Corpuscular Volume 86 fL (80-100); Mean Platelet Volume 12.1 fL (9.1-12.4); NEUTROPHILS PERCENT AUTO 84 % (41-73); Platelet Count 157 K/mm3 (150-400); RDW Coefficient Variation 14.5 % (11.7-14.2); Red Blood Cell Count 4.34 M/mm3 (4.30-5.90); White Blood Cell Count 8.51 K/mm3 (4.00-11.30)
[2021-04-12 06:03] LABS: Alanine Aminotransfer (ALT/SGP 29 U/L (12-78); Albumin, Blood 2.2 g/dL (3.4-5.0); Albumin/Globulin Ratio 0.6 (0.8-1.8); Alk Phos 56 U/L (50-136); Anion Gap 7 mmol/L (6-16); Aspartate Aminotrans (AST/SGOT 68 U/L (12-37); Bilirubin, Total 0.4 mg/dL (0.1-1.0); Blood Urea Nitrogen 21 mg/dL (8-24); Bun/Creatinine Ratio 32.5 (12.0-20.0); CO2, Blood 23 mmol/L (21-32); Calcium, Blood 8.8 mg/dL (8.5-10.1); Chloride, Blood 110 mmol/L (98-108); Creatinine, Blood 0.65 mg/dL (0.60-1.20); Globulin, Blood 3.8 g/dL (2.2-4.0); Glomerular Filtration Rate >60 (60-); Glucose, Blood 99 mg/dL (70-99); Potassium, Blood 4.6 mmol/L (3.5-5.5); Sodium, Blood 140 mmol/L (136-145)
--- NOTE | 2021-04-12 06:03 | NUR ---
SHIFT SUMMARY; VS WNL, SATS GOOD ON 4 LITERS, STILL GETS DYSPENIC WITH EXERTION. PLURIC PAIN IN STRUNUM, MEDICATED WITH NORCO. LUNG SOUNDS IMPROVED DIMINISHED IN BASES, COUGH IS DRY. FAIR APPETITE. GOOD FLUID INTAKE. INCISION LOOKING GOOD. NO ACUTE CHANGES TO NOTE THIS SHIFT. CALL LIGHT IN REACH.
--- NOTE | 2021-04-12 17:22 | NUR ---
SHIFT SUMMARY: PT IS A/O X3, ONE ASSIST TO CHAIR. PT CURRENTLY ON 4 LPM VIA HIGH FLOW O2. PT DESATS TO 70'S WHEN UP SO HIGH FLOW ADDED SO WE CAN TURN O2 UP WHEN HE IS UP OOB GETTING TO CHAIR. HOWEVER HE IS A MOUTH BREATHER SO INSTEAD THE PLAN IS TO PLACE NON REBREATHER ON WITH EXERCISE, AMBULATION AT 15 LPM AND THEN [address] WITH HIGH FLOW NC. PT REPORTS HE HAS FIBROMYALGIA. PAIN REPORTED AND OXYCODONE EFFECTIVE IN TREATING HIS PAIN.
--- NOTE | 2021-04-12 20:55 | NUR ---
ASSUMED CARE. LUNG SOUNDS CLEAR IN UPPER LOBES WITH FINE CRACKLES IN THE BASES MOSTLY ON THE RIGHT. COUGH IS ONLY OCCATIONAL BUT PRODUCTIVE WITH THICK YELLOW SPUTUM. CURRENTLY ON HF NC RUNNING 10L O2, SATS 92%. PAIN IN THE LEFT SIDE OF THE ABDOMIN AT THIS TIME BUT STATES HE HAS BEEN HAVING PAIN ALL OVER. DECONDITIONED WITH MOVEMENTS CAUSING DYSPNEA AND SATS DOWN TO 80'S. ENCOURAGED DEEP BREATHING, IS USE, AND MORE ACTIVITY TO BUILD ENDURANCE. MEDICATED FOR PAIN. WILL CONTINUE TO MONITOR. CALL LIGHT IN REACH.
--- NOTE | 2021-04-13 04:10 | NUR ---
REPORT GIVEN TO SHUBHAM PATEL WHO WILL BE ASSUMING CARE. PATIENT WAS PLACED ON NR DUE TO SATS DROPPING WHILE HE WAS SLEEPING R/T MOUTH BREATHING. CURRENTLY ON 10L.
--- NOTE | 2021-04-13 17:36 | NUR ---
SHIFT SUMMARY: PT A/O X 3 STANDBY ASSIST. PT ON 6 LPM VIA HIGH FLOW NC. PT CONTINUES TO DESAT WHEN UP STANDING AND NON REBREATHER AT 15 LPM ADDED TO KEEP SATS AT 90%. PT HAS CHRONIC PAIN MANAGED WITH CURRENT PAIN REGIMEN. NO OTHER ACUTE CONCERNS THIS SHIFT.
--- NOTE | 2021-04-14 06:51 | NUR ---
SHIFT SUMMARY PATIENT ADMITTED FOR COVID POSITIVE. FULL CODE. PLAN IS FOR DC WITH HH WHEN STABLE. IV METOPROLOL GIVEN FOR SUSTAINED TACHYCARDIA. PATIENT REMOVES O2 FREQUENTLY AND HAS BEEN EDUCATED. PATIENT HAS BEEN AGITATED. PATIENT DESATS RAPIDLY ON ROOM AIR.
--- NOTE | 2021-04-14 11:15 | NUR ---
PATIENT VERY ANXIOUS THIS AM WITH HEART RATE 120S, MEDICATED WITH ZANAX, HEART RTE 80, 95%, PATIENT DESATS WHILE SLEEPING, NONREBREATHER AT 100%, ENCOURAGED DEEP BREATHING AND COUGH, NO DISTRESS
--- NOTE | 2021-04-14 15:55 | NUR ---
PATIENTS CONFUSION CONTINUED TO WORSEN, PULLING NC AND NONREBREATHER OFF, RESTRAINTS PLACED, SATS DROPPED TO 57%, RECOVERED AFTER 10 MINUTES TO 95% WITH NC, NONREBREATHER, AND DEEP BREATHING, DOCTOR CONTACTED FOR RESTRAINTS ORDER,
--- NOTE | 2021-04-14 16:07 | NUR ---
REPORTED TO DAUGHTER FREDY SCHULTZ [phone], CHANGES IN MENTATION, RESTRAINTS APPLIED TO KEEP OXYGEN ON AND HYPOXEMIA, SATS AT 90%, NON REBREATHER 15 L, HIGH FLOW 10L, WCTM
--- NOTE | 2021-04-14 20:00 | NUR ---
HANDED OFF CARE TO CHARGE NURSE JOSIAH Santiago DUE TO RECIEVING NEW ADMIT.
--- NOTE | 2021-04-14 20:02 | NUR ---
CALLED HOSPITALIST INFORMED HIM OF PT'S INCREASED CONFUSION. PT PULLING/REMOVING OXYGEN AND RESTRAINTS. DAY RN REPORTED THAT HIS O2 SAT MEASURED 37%. WE HAVE A GUARD SITTING OUTSIDE ROOM THIS PT REMOVES OXYGEN SO FREQUENTLY AND DESATURATES IMMEDIATELY. ORDER FOR TRANSFER TO ANOTHER UNIT, ATIVAN NOW, BIPAP & PRECEDEX AFTER ARRIVING AT NEW UNIT
--- NOTE | 2021-04-14 20:58 | NUR ---
TRANSFER NOTE HANDOFF GIVEN TO LICENSED AND CERTIFIED MIDWIFEAMANDA WATSON. PERSONAL POSSESSIONS WITH PT. RT ACCOMPANIED US DURING TRANSFER TO ENSURE O2 SAT WNL. DAUGHTER YESSY CALLED AND INFORMED OF TRANSFER.
--- NOTE | 2021-04-15 01:05 | NUR ---
CALLED DR JUAN REGARDING PT BEING AGITATED, ANXIOUS AND RESTLESS. ORDER OF INCREASE IN PRECEDX ORDER TO 1.4 WITH TITRATION AND ATIVAN 1-2MG Q4 PRN.
[2021-04-15 03:55] LABS: BASOPHILS ABSOLUTE AUTO 0.03 K/mm3 (0.00-0.23); BASOPHILS PERCENT AUTO 0 % (0-2); EOSINOPHILS PERCENT AUTO 0 % (0-6); Hematocrit 35.5 % (37.0-53.0); Hemoglobin 11.9 g/dL (13.5-17.5); IMMATURE GRAN ABSOLUTE AUTO 0.29 K/mm3 (0.00-0.10); IMMATURE GRAN PERCENT AUTO 4 % (0-1); LYMPHOCYTES ABSOLUTE AUTO 0.33 K/mm3 (0.84-5.20); LYMPHOCYTES PERCENT AUTO 4 % (21-46); MONOCYTES ABSOLUTE AUTO 0.16 K/mm3 (0.16-1.47); MONOCYTES PERCENT AUTO 2 % (4-13); Mean Corpuscular HGB 28.3 pg (26.0-34.0); Mean Corpuscular HGB Conc 33.5 g/dL (31.5-36.5); Mean Corpuscular Volume 85 fL (80-100); Mean Platelet Volume 11.1 fL (9.1-12.4); NEUTROPHILS ABSOLUTE AUTO 7.27 K/mm3 (1.96-9.15); NEUTROPHILS PERCENT AUTO 90 % (41-73); Platelet Count 223 K/mm3 (150-400); RDW Coefficient Variation 13.8 % (11.7-14.2); RDW Standard Deviation 42.6 fL (35.1-46.3); White Blood Cell Count 8.08 K/mm3 (4.00-11.30)
[2021-04-15 04:17] LABS: Alanine Aminotransfer (ALT/SGP 32 U/L (12-78); Albumin, Blood 2.1 g/dL (3.4-5.0); Albumin/Globulin Ratio 0.5 (0.8-1.8); Alk Phos 79 U/L (50-136); Anion Gap 6 mmol/L (6-16); Aspartate Aminotrans (AST/SGOT 27 U/L (12-37); Bilirubin, Total 0.6 mg/dL (0.1-1.0); Blood Urea Nitrogen 32 mg/dL (8-24); Bun/Creatinine Ratio 45.1 (12.0-20.0); CO2, Blood 24 mmol/L (21-32); Chloride, Blood 108 mmol/L (98-108); Creatinine, Blood 0.71 mg/dL (0.60-1.20); Globulin, Blood 4.1 g/dL (2.2-4.0); Glomerular Filtration Rate >60 (60-); Glucose, Blood 116 mg/dL (70-99); Sodium, Blood 138 mmol/L (136-145); Total Protein, Blood 6.2 g/dL (6.4-8.2)
--- NOTE | 2021-04-15 05:15 | NUR ---
SHIFT SUMMARY PT HAS BEEN CONFUSED, AGITATED, AND RESTLESS MOST OF THE NIGHT. HAS BEEN YELLING OUT "TAKE THIS MASK OFF" "PULL THIS OFF." HAD INCREASED OXYGENATION NEEDS FROM AIRVO TO CPAP SETTINGS OF 12 100%FIO2 WITH SATS RANGING FROM 90-95%. PT WILL DESAT INTO HIGH 70'S WITH MOVEMENT OF REPOSITIONING. PT'S VITALS ARE SOFT AND A HEART RATE OF 59-60 IN SR. PT WAS INCONT OF URINE AND BOWEL; ROSAS NOW DRAINING TO GRAVITY WITH LITTLE OUTPUT FOR SHIFT. PRECEDEX INFUSING AT RATE PER EMAR. HAS NOW BEEN LEAVING ON MASK AND RESTING. SATS NOW AT 95% WITH HEART RATE OF 59-60. CALL LIGHT IS WITHIN REACH.
--- NOTE | 2021-04-15 05:31 | NUR ---
TALKED TO DR JUAN REGARDING PT HAVING LITTLE OUTPUT AND NO FLUID ORDERS. ORDER OF NS GIVEN. ORDER ENTERED IN EMAR.
--- NOTE | 2021-04-15 08:30 | NUR ---
ASSUME CARE THIS AM FROM ABIODUN RN: PT ON PRECEDEX GTT AT 0.8, BOTH UPPER WRIST RESTRAINTS ON, ON CPAP AT 12 100% RT CAME IN WAS ABLE TO TITRATE DOWN TO 90%. PT APPEARS LETHARGIC WAKES UP OCCASIONALLY TRYING TO PULL CPAP MASK OFF PT WAS REDIRECTED UNABLE TO FOLLOW DIRECTION MOST OF THE TIME. VITALS HRR SINUS COOKIE KEPT 50-60'S, BP SOFT SYSTOLIC 90-110'S, SATS REMAINED ABOVE 90%, RR 30'S, AFEBRILE. PT HAS ROSAS DRAINING DARK YELLOW URINE VIA GRAVITY, NS RUNNING AT 75MLS/HR. PT WAS REPOSITIONED PROVIDED ORAL CARE. UNABLE TO TAKE PO INTAKE AT THIS TIME DUE TO SEDATION DR GREENE MADE AWARE. WILL CONTINUE TO MONITOR
[2021-04-15 09:56] LABS: PCO2 Arterial 34.4 mmHg (35-45); PO2 Arterial 75.4 mmHg (80-100); pH Blood Arterial 7.45 (7.35-7.45)
[2021-04-15 10:57] LABS: C-REACTIVE PROTEIN, EXT RANGE 29.8 mg/dL (0.000-0.300)
[2021-04-15 12:17] LABS: Prothrombin Time Results 10.8 Sec (9.7-11.5)
--- NOTE | 2021-04-15 17:54 | NUR ---
PT SUMMARY: PT'S FAMILY CAME IN TO VISIT SKEINER AWARE, WILL RESTRICT VISITORS TOMORROW. PT ON STAND BY FOR PRECEDEX GTT HRR DIPPING ON THE LOW 40'S, BOTH UPPER EXT RESTRAINTS STILL ON PT STILL ATTEMPTS ON PULLING LINES AND TUBINGS. CHEST CT CAME BACK POSITIV E FOR PE, HEP GTT STARTED AT 15U/KG/HR. VITALS HRR SB 50'S, BP SYSTOLIC 110'S-120'S, RR 30'S, AFEBRILE. CURRENT CPAP SETTINGS 12/ 80% FIO2 SATS RANGING 88-93 DESATS TO LOW 80'S WHEN OFF OF CPAP/ORAL CARE BREAKS. ROSAS DRAINING VIA GRAVITY HAD 350MLS URINE OUT FOR THE SHIFT, NS STILL RUNNING AT 75MLS/HHR. PT ENCOURAGED PRONING AGREED TO PRONE WHEN LAST VISITOR DONE VISITING. PT REPOSITIONED Q2HRWS, ORAL CARE PROVIDED. WILL REPORT TO ONCOMING SHIFT
--- NOTE | 2021-04-15 18:38 | NUR ---
PT PRONED AT THIS TIME, PRECEDEX GTT ON STAND BY WRIST RESTRAINT OFF, PT IS MORE ALERT ABLE TO CONVERSE AND FOLLOWS DIRECTIONS. FAMILY AT BEDSIDE AT THIS TIME. WILL MONITOR
--- NOTE | 2021-04-15 22:49 | NUR ---
PT HAS BEEN READJUSTING MASK THOUGHOUT THE NIGHT. AT TIMES HE WILL UNATTACH THE TUBES. PRECEDEX RESTARTED AT 0.2. CALL LIGHT IS WITHIN REACH.
--- NOTE | 2021-04-15 23:42 | NUR ---
PT VERY RESTLESS. FIDGETING WITH MASK, RT CHANGED TO PT TO HI-FLOW FOR BETTER COMFORT. SETTINGS AT 50L FIO2 80%. SATURATION OF 93% RR OF 23. CALL LIGHT IS WITHIN REACH.
--- NOTE | 2021-04-16 00:37 | NUR ---
PT VERY AGITATED TAKING OFF MASK. SATS DROPPED TO 71%. WILL NOT KEEP MASK ON. ATIVAN GIVEN.
--- NOTE | 2021-04-16 01:25 | NUR ---
CALLED DR JUAN FOR A SOFT WRIST RESTRAINT ORDER. PT WILL NOT KEEP MASK ON AND DESATING TO HIGH 60'S. PRECEDEX AND ATIVAN HAVE ALSO BEEN ADMINISTERED PER ORDER.
[2021-04-16 01:55] LABS: BASOPHILS ABSOLUTE AUTO 0.02 K/mm3 (0.00-0.23); BASOPHILS PERCENT AUTO 0 % (0-2); EOSINOPHILS PERCENT AUTO 0 % (0-6); Hematocrit 32.8 % (37.0-53.0); Hemoglobin 11.1 g/dL (13.5-17.5); IMMATURE GRAN ABSOLUTE AUTO 0.34 K/mm3 (0.00-0.10); IMMATURE GRAN PERCENT AUTO 4 % (0-1); LYMPHOCYTES ABSOLUTE AUTO 0.29 K/mm3 (0.84-5.20); LYMPHOCYTES PERCENT AUTO 4 % (21-46); MONOCYTES ABSOLUTE AUTO 0.11 K/mm3 (0.16-1.47); MONOCYTES PERCENT AUTO 1 % (4-13); Mean Corpuscular HGB 28.5 pg (26.0-34.0); Mean Corpuscular HGB Conc 33.8 g/dL (31.5-36.5); Mean Corpuscular Volume 84 fL (80-100); Mean Platelet Volume 11.4 fL (9.1-12.4); NEUTROPHILS ABSOLUTE AUTO 6.98 K/mm3 (1.96-9.15); NEUTROPHILS PERCENT AUTO 90 % (41-73); Platelet Count 188 K/mm3 (150-400); RDW Coefficient Variation 13.9 % (11.7-14.2); RDW Standard Deviation 42.8 fL (35.1-46.3); White Blood Cell Count 7.74 K/mm3 (4.00-11.30)
[2021-04-16 02:18] LABS: Alanine Aminotransfer (ALT/SGP 26 U/L (12-78); Albumin, Blood 1.9 g/dL (3.4-5.0); Albumin/Globulin Ratio 0.5 (0.8-1.8); Alk Phos 70 U/L (50-136); Anion Gap 8 mmol/L (6-16); Aspartate Aminotrans (AST/SGOT 27 U/L (12-37); Bilirubin, Total 0.4 mg/dL (0.1-1.0); Blood Urea Nitrogen 39 mg/dL (8-24); Bun/Creatinine Ratio 50.8 (12.0-20.0); CO2, Blood 22 mmol/L (21-32); Calcium, Blood 8.9 mg/dL (8.5-10.1); Chloride, Blood 113 mmol/L (98-108); Creatinine, Blood 0.77 mg/dL (0.60-1.20); Glomerular Filtration Rate >60 (60-); Glucose, Blood 106 mg/dL (70-99); Potassium, Blood 3.7 mmol/L (3.5-5.5); Sodium, Blood 143 mmol/L (136-145); Total Protein, Blood 5.9 g/dL (6.4-8.2)
--- NOTE | 2021-04-16 06:42 | NUR ---
SHIFT SUMMARY PT IS ALERT. PT HAS BEEN CONFUSED, AGITATED AND ANXIOUS. PT HAS BEEN PULLING OFF MASK T/O THE NIGHT. MEDICATED WITH ATIVAN AND ON PRECEDEX DRIP. PT HAS ALSO HAD SOFT WRIST CUFFS ON DUE TO PULLING OFF MASK AND TAKING IT APART WHEN MEDICATED. PT HAS HAD DESATS TO 70%. PT WAS ON AIRVO BUT DID NOT TOLERATE LONG. CPAP SETTINGS ARE 12L 100%FIO2. CURRENT SATS ARE 96% WITH THESE SETTINGS. VITALS ARE STABLE HEART RATE RANDING FROM 50-60'S. ROSAS DRAINING TO GRAVITY. CALL LIGHT IS WITHIN REACH.
--- NOTE | 2021-04-16 08:06 | NUR ---
ASSUME CARE THIS AM PT BACK ON PRECEDX GTT AND RESTRAINTS AT THIS TIME. PT REMIANS ON CPAP SETTINGS FIO2 SATTING 95-98% TITRATED TO 95% SATS KEPT ABOVE 90%. VITALS HRR SR/SB 55-60'S BP SYSTOLIC 110'S PRECEDEX AT 0.4, RR 20-30'S, AFEBRILE. PT ALERT MOANS AND MUMBLES MOSTLY. REPOSITINED IN BED RESTRAINTS ADJUSTED. RT IN THE ROOM AT THIS TIME, CALL LIGHTS IN REACH, WILL MONITOR
--- NOTE | 2021-04-16 10:43 | NUR ---
FAMILY AT BEDSIDE AT THIS TIME. PT WAS REPOSITIONED. CALL LIGHTS IN REACH
--- NOTE | 2021-04-16 18:25 | NUR ---
PT SUMMARY: PT WAS OFF OF RESTRAINTS SINCE 1230 SINCE FAMILY WAS AT BEDSIDE TO STAY WITH THE PT AND PT HAS BEEN MORE CALM AND COOPERATIVE. PT WAS ON AIRVO FOR ATLEAST 5-10MINS PER PT'S REQUESTS TO GET BREAK FROM MASK PT WAS NOT ABLE TO TOLERATE WAS DESATTING TO LOW 80'S PT WAS ALSO TALKING A LOT TAKES TIME TO RECOVER CPAP MASK RE ATTACHED, ALSO DR CABAN WENT AND SAW PT TODAY HAD ORDER TO SWITCH PT TO BIPAP PT STARTED ON / 80% FIO2 PT SATTING 98-100% PT WAS THEN PRONED PER PT REQUESTS PT STARTED TO GET AGITATED KEEPS WANTING TO TAKE THE MASK OFF, RT WAS CALLED PT MAYBE HAVING TROUBLE ADJUSTING TO CURRENT PRESSURE SETTING PT WAS TITRATED EVERY HR UP TO 0.6 OF PRECEDEX ATIVAN AND FENTANYL WAS GIVEN WELL, ONCE THE BIPAP PRESSURE SETTINGS GOT READJUSTED TO 14/8 PT WAS MORE CALMER. DAUGHTER AT THE BEDSIDE AT THIS TIME AND IS GOING TO STAY THE NIGHT TO HELP WITH PT'S CARE. VITALS HRR STAYING 60-70'S BP SYSTOLIC 110-115, RR 20-30'S AFEBRILE. WILL REPORT TO ONCOMING SHIFT
--- NOTE | 2021-04-16 19:30 | NUR ---
REPORT RECEIVED AT 1920-CARE ASSUMED, CRITICAL STAFFING- FAMILY AT BEDSIDE HELPING WITH PT. PRECEDEX GTT INFUSING FOR AGGITATION-PT IN PRONE POSITION ON BIPAP.HEPARIN GTT INFUSING. SEE FLOWSHEET FOR GTT RATES, GTT'S, & VITALS. SURGE SHIFT ASSESSMENT NOW- CONTINUE ASSESSSMENT AND CARE.
--- NOTE | 2021-04-17 05:21 | NUR ---
ASSESS PT REMAIN PRONE ON BIPAP OVERNIGHT- ROSAS DRAINING JONATHAN URINE-400 ML OUT. LABS INCLUDING PTT TO BE DONE @ 7AM. GTTS AND RATES NOTED IN FLOWSHEET. CONTINUE ASSESSMENTS AND CARE TILL REPORT OFF TO ONCOMING SHIFT RN.
[2021-04-17 08:44] LABS: BASOPHILS ABSOLUTE AUTO 0.01 K/mm3 (0.00-0.23); BASOPHILS PERCENT AUTO 0 % (0-2); EOSINOPHILS PERCENT AUTO 0 % (0-6); Hematocrit 31.1 % (37.0-53.0); Hemoglobin 10.1 g/dL (13.5-17.5); IMMATURE GRAN ABSOLUTE AUTO 0.22 K/mm3 (0.00-0.10); IMMATURE GRAN PERCENT AUTO 3 % (0-1); LYMPHOCYTES ABSOLUTE AUTO 0.24 K/mm3 (0.84-5.20); LYMPHOCYTES PERCENT AUTO 3 % (21-46); MONOCYTES ABSOLUTE AUTO 0.24 K/mm3 (0.16-1.47); MONOCYTES PERCENT AUTO 3 % (4-13); Mean Corpuscular HGB 28.4 pg (26.0-34.0); Mean Corpuscular HGB Conc 32.5 g/dL (31.5-36.5); Mean Corpuscular Volume 87 fL (80-100); NEUTROPHILS PERCENT AUTO 92 % (41-73); Platelet Count 150 K/mm3 (150-400); RDW Standard Deviation 44.6 fL (35.1-46.3); Red Blood Cell Count 3.56 M/mm3 (4.30-5.90); White Blood Cell Count 8.41 K/mm3 (4.00-11.30)
[2021-04-17 09:22] LABS: Alanine Aminotransfer (ALT/SGP 38 U/L (12-78); Albumin, Blood 1.9 g/dL (3.4-5.0); Albumin/Globulin Ratio 0.5 (0.8-1.8); Alk Phos 77 U/L (50-136); Anion Gap 9 mmol/L (6-16); Aspartate Aminotrans (AST/SGOT 39 U/L (12-37); Bilirubin, Total 0.5 mg/dL (0.1-1.0); Blood Urea Nitrogen 39 mg/dL (8-24); Bun/Creatinine Ratio 53.9 (12.0-20.0); CO2, Blood 22 mmol/L (21-32); Calcium, Blood 9.4 mg/dL (8.5-10.1); Chloride, Blood 112 mmol/L (98-108); Creatinine, Blood 0.72 mg/dL (0.60-1.20); Globulin, Blood 4.1 g/dL (2.2-4.0); Glomerular Filtration Rate >60 (60-); Glucose, Blood 134 mg/dL (70-99); Potassium, Blood 4.2 mmol/L (3.5-5.5); Sodium, Blood 143 mmol/L (136-145)
--- NOTE | 2021-04-17 10:42 | NUR ---
ASSUMPTION OF CARE NOTE PATIENT ALERT TO FAMILY, SELF, AND PLACE. PER REPORT PT HAS EPISODES OF CONFUSION, ANXIETY AND AGITATION. PT WAS ON PRECEDEX 0.6 AND HR RANGED 44-50. PRECEDEX WAS TITRATED TO 0.2 W/ NO IMPROVEMENT IN HR THEREFORE PRECEDEX NO LONGER RUNNING. 1 MG ATIVAN GIVEN THIS AM FOR ANXIETY. FAMILY AT BEDSIDE. SPO2 RANGES 90-93% VIA BIPAP 14/8 @ 95% FIO2. HEPARIN DRIP RUNNING 21U/KG/HR PER EMAR ORDERS. RIGHT POWERGLIDE REMOVED THIS AM, LEFT POWERGLIDE NOW PATENT AND INFUSING PER EMAR ORDERS. RIGHT HAND SLIGHTLY SWOLLEN. ROSAS CATHETER IN PLACE AND DRAINING CLEAR YELLOW URINE. BED IN LOW. WILL CONTINUE TO MONITOR.
--- NOTE | 2021-04-17 14:01 | NUR ---
CARE NOTE PT ALERT TO SELF, FAMILY AND SITUATION BUT STILL GETS CONFUSED AND REACHES FOR BIPAP MASK IN ATTEMPT TO TAKE OFF. SISTER AT BEDSIDE INTERVENES TO PREVENT PATIENT FROM TAKING MASK OFF. PRECEDEX NOW RUNNING AT 0.2, HR RANGES 50-63. SECOND DOSE OF ATIVAN 1 MG GIVEN APPROX. 1300. PT DESATURATES EASILY SUCH W/ ORAL CARE OR SIPS OF WATER. BIPAP SETTINGS NOW 12/8, FIO2 100% AND SPO2 94%. WILL CONTINUE TO MONITOR AND ADJUST FIO2 ACCCORDINGLY.
--- NOTE | 2021-04-17 16:43 | NUR ---
CARE NOTE AT APPROX. 1600 PT BECAME INCREASINGLY AGITATED AND CONFUSED. 3RD DOSE OF ATIVAN 1MG GIVEN. PT STILL AGITATED SO AT APPROX 1640 PRECEDEX TITRATED FROM 0.2 TO 0.4; HR REMAINING 54-60, BP 149/79. SPO2 90% VIA BIPAP /8 AT 100% FIO2. DAUGHTER AT BEDSIDE. HEPARIN DRIP DC'D PER ORDERS. WILL CONTINUE TO MONITOR.
--- NOTE | 2021-04-17 18:33 | NUR ---
SHIFT SUMMARY PT REMAINS ALERT TO SELF, FAMILY AND SITUATION BUT STILL HAS EPISODES OF CONFUSION. PT SATURATIONS WERE SITTING IN LOW 80'S VIA BIPAP 14/8 100% FIO2 AND WAS THEREFOR PRONED AT 1745. PT TOLERATED TURNING/PRONING WELL. THIS NURSE TITRATED FIO2 ACCORDINGLY PT COULD TOLERATE AND BIPAP SETTINGS ARE NOW 14/8 85% FIO2 WHILE SATURATIONS REMAIN IN MID 90'S. SBP RANGED 131-157 AND HR RANGED 45-75. DAUGHTER AT BEDSIDE T/O SHIFT. ATIVAN 1MG WAS GIVEN X 3 PER EMAR ORDER DURING SHIFT. PRECEDEX IS INFUSING AT 0.4 PER EMAR ORDERS AND HR REMAINS IN MID 50'S. POWERGLIDE IN LA IS PATENT. ROSAS CATHETER IS PATENT AND DRAINING W/ GRAVITY CLEAR YELLOW URINE. NO OTHER ACUTE CHANGES NOTED. WILL CONTINUE TO MONITOR FOR REMAINDER OF SHIFT.
--- NOTE | 2021-04-18 05:55 | NUR ---
PATIENT HAD FAMILY AT BEDSIDE THROUGHOUT THE NIGHT, ANXIOUS IN BEGINNING OF SHIFT BRADICARDIAC 40'S PRECEDEX WAS RUNNING AT 0.4MCG, STOPPED AT 0200. PATIENT IS ABLE TO SLEEP THROUGHOUT THE NIGHT WITH ANXIETY AND PAIN CONTROLLED WITH ATIVAN 2MG IVP AND DILAUDID 1MG IVP, HEART RATE IS NOW 60'S-80'S, BLOOD PRESSURES BEEN INCREASINGS SBP'S 140-150'S RECEIVED NEW ORDER HYDRALYZINE 10MG IVP Q6 PRN NEEDED FOR SBP> 160. ROSAS CATHETER IS PATENT AND DRAINING DARK URINE. IV'S REMAINED PATENT THROUGHOUT THE SHIFT AND ALL CAPS CHANGED. PATIENT HAD A SMEAR BROWN SOFT BM THIS EVENING. HAS BEEN PRONED SINCE BEGINNING OF SHIFT, PREFERS RIGHT SIDE WHEN NOT PRONE STOMACH POSITION, PATIENT REFUSED TO TURN TO THE LEFT. PATIENT CURRENTLY IS ON BIPAP 10/03 AT 70% FIO2 DOWN FROM 80 % FIO2 FROM START OF SHIFT.
--- NOTE | 2021-04-18 18:41 | NUR ---
END OF SHIFT SUMMARY: INFUSING: PRECEDEX AT .2, CLINIMIX, FAT EMULSIONS. NS AT TKO VENT SETTINGS: PS OF 16/9 WITH FIO2 90%, PRONED AT 1815. PATIENT CONTINUE TO HAVE EPISODES OF ANXIETY. AND AGITATION, MEDICATED PER EMR AND FAMILY IN THE ROOM. HOWEVER, PATIENT STARTED TO BECOME ST LOW 100'S INCREASED AGITATION AND ANXIETY. PRECEDEX WAS THEN STARTED AT .2, WHICH HAS DECREASED THE NEED OF PRN ADJUCT ANX AND PAIN MEDS. PATIENT WHILE SUPINE WAS SATURATING 87-90% SPO2. ONCE PRONED AT 1815 PATIENT THEN STARTED TO SATURATE >96 SPO2. PATIENT HAS BEEN SR TO ST 60'S-LOW 100'S. PATIENT RECIEVING LOVENOX 80 BID, HEPARIN DC'D. PATIENTS RIGHT HAND WAS IMPROVING ON THE SWELLING, HOWEVER HAS NOW INCREASED IN SWELLING THIS EVENING. ELEVATED TO PROMOTE DRAINING ONCE PRONED. ABD INCISION COVERED WITH FOAM GAUZE PAD FOR PROTECTION DURING PRONING. DENIES CHEST PAIN.
--- NOTE | 2021-04-18 20:00 | NUR ---
CLINIMIX AND FAT EMULSION INFUSING PER EMAR AT BEGINNING OF SHIFT. FAMILY AT BEDSIDE. PT IN PRONE POSITION WITH HEAD POSITIONED TO THE RIGHT SIDE.
[2021-04-19 04:39] LABS: Magnesium, Blood 2.8 mg/dL (1.6-2.4); Phosphorus, Blood 2.6 mg/dL (2.5-4.9); Triglycerides 163 mg/dL (30-160)
--- NOTE | 2021-04-19 06:24 | NUR ---
SHIFT SUMMARY - NO ACUTE CHANGES THROUGHOUT THIS SHIFT. FAMILY HAS BEEN PRESENT THROUGHOUT MOST OF THE NIGHT. PT HAS BEEN MEDICATED THROUGHOUT THE NIGHT WITH ATIVAN/DILAUDED BASED ON HIS AGITATION LEVEL/FACE SCALE. ROSAS PUT OUT 400 CC TEA COLORED URINE. SANG PG INFUSING WITHOUT DIFFICULTY, AND DRAWS EASILY FOR AM LABS. PT HAS SLEPT PRONE THROUGHOUT THE NIGHT. PT IS BIPAP DEPENDENT - FIO2 TURNED DOWN TO 80% AT 0615 AM. DAUGHTER IN ROOM, IS AN RN, AND IS VERY SUPPORTIVE TO HER DAD. SHE IS HERE FROM [place]. PT'S IS IN ROOM PCU 11. FAMILY HAS BEEN ROTATING SHIFTS BETWEEN PCU 11, AND SAUGERTIES. SATS HAVE REMAINED STABLE THROUGHOUT THE NIGHT ON BIPAP SETTINGS.
--- NOTE | 2021-04-19 11:30 | NUR ---
RESPIRATION RATE THROUGH MONITOR WAS INACCURATE AT 1110 HAD TO REPOSITION LEADS RR FROM 18-25. WILL CONTINUE TO MONITOR.
--- NOTE | 2021-04-19 18:17 | NUR ---
END OF SHIFT SUMMARY: INFUSING: PRECEDEX AT .2, CLINIMIX AT 100 MLS/HR, ZOSYN 12.5MLS/HR, NS AT TKO BIPAP SETTINGS: PS 16/9 RR 18-25 WHEN SEDATED, WILL INCREASE TO 30'S WHEN SEDATION WEARS OFF. FIO2 AT 85% SPO2 WHEN SUPINE >88%. PRN ATIVAN, AND DILAUDED ADJUNCT, FENTANYL CREATED MORE AGITATION. SB TO SR UPPER 50'S-70'S TODAY, DENIES CHEST PAIN. SWELLING IN THE RIGHT HAND, ELEVATED. PATIENT RESTING, WEAKNESS IN ALL EXTREMETIES.AFEBRILE TODAY. BLOOD PRESSURE WNL WHEN SEDATED. SOME SWELLING TO THE RIGHT UPPER EYE RECURRENT WITH BIPAP AND PRONING. WILL INFORM NIGHT RN TO MONITOR.
--- NOTE | 2021-04-19 19:30 | NUR ---
SHIFT ASSESSMENT ASSUMED CARE OF PT @ 1900. REPORT RECEIVED FROM AMANDA HADLEY. PTS SISTER (FRACISCO) AT BEDSIDE. PT IN BED, SUPINE. VERY ANXIOUS AT TIMES. REMAINS ON BIPAP, CURRENTLY FI02 @ 90% c O2 SATS RANGING 88-91%. PRECEDEX GTT INFUSING @ 0.2MCG/KG/HR, PRN ATIVAN AND DILAUDID GIVEN PER SEP. POST OP ABDOMINAL 2X2 DRESSING CLEAN, NO SIGNS OF BLEEDING AROUND DRESSING. ROSAS CATH PATENT, DRAINING YELLOW URINE.
--- NOTE | 2021-04-19 22:25 | NUR ---
UPDATE/ CODE STATUS CHANGE PTS SISTER FRACISCO AT BEDSIDE. FRACISCO AND PTS DAUGHTERS HAVE DISCUSSED WHAT THE PT WOULD LIKE AND AGREED WITH CHANGING PT TO A DNR. TOMORROW MORNING (04/20/21) FAMILY WANTS TO ASSESS PATIENTS RESPONSE TO [facility], IF PT DOES NOT TOLERATE THEY REQUEST A TRANSITION TO COMFORT CARE. RT-SOLOMON NOLASCO IN ROOM DURING THIS CONVERSATION.
[2021-04-20 04:26] LABS: Magnesium, Blood 2.9 mg/dL (1.6-2.4); Phosphorus, Blood 2.8 mg/dL (2.5-4.9)
--- NOTE | 2021-04-20 06:45 | NUR ---
SHIFT SUMMARY PT REMAINS ON BIPAP, FI02 TITRATED UP TO 95% c O2 SATS >90%. PRECEDEX @ 0.2MCG/KG/HR. PT KEPT CALM DURING THE NIGHT c PRN ATIVAN AND DILAUDID. WHEN ANXIOUS, O2 SATS QUICKLY DROP THE LOW 80'S. ROSAS CATH DRAINING TO GRAVITY. PTS SISTER REMAINED AT BEDSIDE. FAMILY PLANS ON COMING IN THIS AM TO POSSIBLY TRANSITION PT TO COMFORT CARE. REPORT GIVEN TO ONCOMING NURSE.
--- NOTE | 2021-04-20 08:30 | NUR ---
[place] of Care: Care assumed at 0700hr. Patient on precedex gtt at 0.2mcg/kg/hr to help tolerate BiPAP mask. Patient sleeping and difficulty to rouse, not following any commands or opening eyes. Became restless/agitated when attempted to wake patient, prn Ativan given with good effect. BiPAP at 16/9/95%, spO2-92-94%, tolerating mask without difficulty. Power-glide to SANG patent and intact, infusing without difficulty. Patient's sister at bedside. Sister stated plan to transition patient to comfort measures this morning after patient's children arrive. Dr. Cuevas then to room to see patient. This nurse and patient's sister discussed plan to transition to comfort measure. Dr. Cuevas agreed with change to comfort measures and gave multiple orders for comfort care medications. Awaiting arrival of patient's children at this time. Will continue to monitor.
--- NOTE | 2021-04-20 10:32 | NUR ---
Change to Comfort Measures: x4 patient's daughters arrived to room at approx 0900hr. This nurse spoke with family and comfirmed plan to transition to comfort measures. This RN the stated plan to given them time with the patient and to contact staff for any concerns or when ready to remove BiPAP mask. At approx 1000hr, patient family notified this RN that they were ready to remove BiPAP mask and trasnition to comfort measures. PRN medications given to assist with air hunger and agitation, good effect noted. Family at bedside. Patient appears calm and comfortable. Will continue to monitor.
--- NOTE | 2021-04-20 11:57 | NUR ---
TOD: Patient at 1150hr. Verified by this RN via ascultation for apical HR for 1 minute, no HR noted. Family at bedside, will notify staff when ready to release to home.
== END 2021-04-20 13:06 | DRG 177 ==
LOC: ER 14:54 → MEDS 14:55 → PCU 04-10 15:08 → MEDS 04-10 15:09 → PCU 04-14 20:48
PROVIDERS: Emergency Medicine Emergency Medical Services; Internal Medicine; ADMIT Internal Medicine
PROC: 8E0ZXY6 Isolation (ICD-10-PCS; principal; 2021-04-10)
PROC: XW033E5 Introduction of Remdesivir Anti-infective into Peripheral Vein, Percutaneous Approach, New Technology Group 5 (ICD-10-PCS; 2021-04-10)
PROC: 3E0333Z Introduction of Anti-inflammatory into Peripheral Vein, Percutaneous Approach (ICD-10-PCS; 2021-04-15)
PROC: 5A09557 Assistance with Respiratory Ventilation, Greater than 96 Consecutive Hours, Continuous Positive Airway Pressure (ICD-10-PCS; 2021-04-15)
DX: U07.1 COVID-19 (principal); J12.82 Pneumonia due to coronavirus disease 2019; J96.01 Acute respiratory failure with hypoxia; I26.99 Other pulmonary embolism without acute cor pulmonale; G93.41 Metabolic encephalopathy; Z51.5 Encounter for palliative care; Z66 Do not resuscitate; E87.6 Hypokalemia; N40.0 Benign prostatic hyperplasia without lower urinary tract symptoms; K58.9 Irritable bowel syndrome, unspecified; K21.9 Gastro-esophageal reflux disease without esophagitis; M79.7 Fibromyalgia; R79.89 Other specified abnormal findings of blood chemistry; R54 Age-related physical debility; E88.09 Other disorders of plasma-protein metabolism, not elsewhere classified; F06.4 Anxiety disorder due to known physiological condition; R00.1 Bradycardia, unspecified; T42.6X5A Adverse effect of other antiepileptic and sedative-hypnotic drugs, initial encounter; Z88.8 Allergy status to other drugs, medicaments and biological substances; Z90.49 Acquired absence of other specified parts of digestive tract; Z98.890 Other specified postprocedural states; Z79.899 Other long term (current) drug therapy; Z85.46 Personal history of malignant neoplasm of prostate; Z78.1 Physical restraint status
CPT/HCPCS: 36415; 36600; 71045; 71260; 80048; 80053; 80076; 82728; 82803; 82947; 83605; 83615; 83735; 84100; 84145; 84478; 84484; 85025; 85027; 85379; 85610; 85730; 86140; 93005; 93010; 94640; 94660; 94762; 96372; 96374; 96375; 97110; 97161; 97166; 97530; 97535; 99285-25; A9270; C1751; C9113; G0378; J1100; J1170; J1630; J1644; J1650; J2060; J2270; J2543; J2920; J3010; J7030; J7040; J7050; Q9967